=== PATIENT | male | born 1955 | race Caucasian/White ===

== ENCOUNTER → 2017-12-18 07:49 | Outpatient (CLI) | payer BC, SELFPAY ==
[2017-12-18 08:09] LABS: Blood Urea Nitrogen 13 mg/dL (7-18); Creatinine,Serum 0.93 mg/dL (0.70-1.30); Estimated Glomerular Filt Rate 82 ml/min (>60); GFR (African American) 99 ML/MIN (>60)
--- NOTE | 2017-12-18 08:16 | CT_ITS ---
CT abdomen wo/w con Ordering Physician: Sammie Booth MD Patient Age: 62 years: Male HISTORY: ITS.REASON: ABD PAIN Mid abdominal pain TECHNIQUE: Helical CT scanning performed . Pre and Postcontrast.. 75 cc Isovue-[id number] with pre-& postcontrast Scanning of Abdomen. Pelvis not imaged No oral contrast. Axial sagittal and coronal reconstructions performed on CT workstation. All CT scans at this facility used one or more dose reduction techniques , viz: automatic exposure control, ma/Kv adjustment per patient's size, (including targeted exam where dose matched to the indication; i.e. head); or iterative reconstruction technique COMPARISON :None relevant FINDINGS Focal mass appearing lesion extending posterior the pancreas. mass extends posterior from the body-tail junction region. It measures up to 4 cm AP maximally x 3.5 cm transverse. X 3.4 cm height ( on coronal image 41). It is slightly better defined on the coronal postcontrast image set with more irregular less well-defined posterior margin just below the left adrenal.. It has slightly less density than pancreas on postcontrast imaging. I am concerned regarding a pancreatic neoplasm this appearance although a resolving or regressing pseudocyst could yield a similar appearance. There is some mild hazy stranding about this region. Nonspecific. No significant pancreatic ductal dilatation at the tail, proximal to this point . Although and postcontrast imaging was performed the technologist did not use pancreatic protocol which includes early arterial and venous phase imaging which may or optimally delineate this structure. Nonetheless this technique can be performed in follow-up. The patient with a slightly nodular character the liver likely reflecting underlying cirrhosis. Upper normal volume right lobe. There is a small low-density area measuring 6X 7 mm mm at the right lobe. Liver axial image 29 postcontrast.. Although could be small tiny cysts there is nonspecific at this point &. Warrants follow-up as well. The spleen is not enlarged. Upper normal in size. However there do appear to be some developing portal venous collaterals. On postcontrast imaging there is a tiny old of degenerative basis posterior to the proximal proximal stomach fundus which leading towards the normal size spleen. The portal vein does not appear to be enlarged. Also note currently small portal venous collaterals extending from the anterior liver from the region of falciform ligament towards umbilicus.. The gallbladder is contracted. No definitive calcified gallstones. No biliary ductal dilatation. Adrenals appear adequate, satisfactory. The kidneys show no calculi nor obstruction. Normal enhancement. On also note that there is dense calcification at the right hemidiaphragm with some associated fibrotic changes here. 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 No retroperitoneal adenopathy but no mesenteric adenopathy. No nodes are seen at the hilum of the liver.. Osseous structures. No lesions identified. . Office notified of positive results. note: This study was dictated with a voice-recognition system. There may be typographical error is related to such. If they are significant please notify us for corrections .----- IMPRESSION----- 1. Mass involving & extending from the posterior aspect of Pancreas, at junction of body and tail region... ... Measures up to~ 4 cm maximum dimension... ... Margins are well delineated at its interface with pancreas but becomes more ill-defined as it extends posteriorly. With additional Slight hazy appeara
== END ==
PROVIDERS: Family Provider Family Medicine; PCP Family Medicine; Visit Provider Family Medicine
DX: R10.84 Generalized abdominal pain (principal)
CPT/HCPCS: 36415; 74170; 82565; 84520; Q9967